=== PATIENT | female | born 1950 | race American Indian/Alaskan Native ===

== ENCOUNTER 2016-06-26 10:13 | Outpatient (CLI) | payer MEDICAID ==
[2016-06-26 10:44] LABS: Hematocrit 44.6 % (30.3-42.9); Hemoglobin 14.7 gm/dl (10.1-14.3); Mean Corpuscular HGB Conc 33 % (30-34); Mean Corpuscular Hemoglobin 30 pg (28-32); Mean Corpuscular Volume 90 fl (79-97); Red Blood Count 4.97 M/mm3 (3.65-5.03); Red Cell Distribution Width 13.8 % (13.2-15.2); White Blood Count 4.6 K/mm3 (4.5-11.0)
[2016-06-26 10:47] LABS: Platelet Count 188 K/mm3 (140-440)
[2016-06-26 10:54] LABS: INR 0.93 (0.87-1.13)
[2016-06-26 10:55] LABS: Partial Thromboplastin Time 29.4 Sec. (24.2-36.6)
[2016-06-26 11:07] LABS: Alanine Aminotransferase 18 units/L (7-56); Albumin/Globulin Ratio 1.2 %; Alkaline Phosphatase 69 units/L (35-129); Anion Gap 18 mmol/L; Bilirubin,Total 0.9 mg/dL (0.1-1.2); Blood Urea Nitrogen 18 mg/dL (7-17); Calcium 9.5 mg/dL (8.4-10.2); Carbon Dioxide 28 mmol/L (22-30); Chloride 98.4 mmol/L (98-107); Cholesterol 185 mg/dL (50-199); Glucose 105 mg/dL (65-100); HDL Cholesterol 52 mg/dL (40-59); LDL Cholesterol,Direct 112 mg/dL (50-130); Potassium 3.9 mmol/L (3.6-5.0); Sodium 140 mmol/L (137-145); Total Protein 7.3 g/dL (6.3-8.2); Triglycerides 109 mg/dL (2-149)
--- NOTE | 2016-06-26 11:13 | XRay Report ---
CHEST 2 VIEWS INDICATION: Bronchial asthma. COMPARISON: None similar. FINDINGS: PA and lateral chest radiographs demonstrate patient tilting, clear lungs and top normal heart size. No pleural effusions or CHF. Demineralized bones with multilevel spinal spondylosis. CONCLUSION: No significant acute chest process, as described. Thank you for the opportunity to participate in this patient's care.
== END 2016-06-26 10:14 | disposition home or self-care (01) ==
LOC: XRAY 10:13
PROVIDERS: ATTEND Internal Medicine
DX: J45.998 Other asthma (principal); M47.899 Other spondylosis, site unspecified
CPT/HCPCS: 36415; 71020; 80053; 80061; 82785; 84439; 84443; 85027; 85610; 85730

== ENCOUNTER 2016-07-06 23:58 | Emergency (ER) | payer MEDICAID ==
[2016-07-07 01:40] LABS: Basophils % (Auto) 0.8 % (0.0-1.8); Eosinophils % (Auto) 1.8 % (0.0-4.3); Hematocrit 43.3 % (30.3-42.9); Hemoglobin 14.3 gm/dl (10.1-14.3); Mean Corpuscular HGB Conc 33 % (30-34); Mean Corpuscular Hemoglobin 30 pg (28-32); Mean Corpuscular Volume 91 fl (79-97); Platelet Count 159 K/mm3 (140-440); Red Blood Count 4.77 M/mm3 (3.65-5.03); Red Cell Distribution Width 14.1 % (13.2-15.2); White Blood Count 9.2 K/mm3 (4.5-11.0)
[2016-07-07 02:01] LABS: Anion Gap 18 mmol/L; BUN/Creatinine Ratio 11.11; Blood Urea Nitrogen 10 mg/dL (7-17); Calcium 9.6 mg/dL (8.4-10.2); Carbon Dioxide 27 mmol/L (22-30); Chloride 97.2 mmol/L (98-107); Glucose 148 mg/dL (65-100); Potassium 3.6 mmol/L (3.6-5.0); Sodium 139 mmol/L (137-145)
--- NOTE | 2016-07-07 03:30 | Cat Scan Report ---
FINAL REPORT EXAM: CT HEAD/BRAIN WO CON HISTORY: fall down 13 stairs with LOC TECHNIQUE: CT scan of the brain without IV contrast. PRIORS: None FINDINGS: Patchy areas of low density in the periventricular and subcortical white matter are nonspecific, but may relate to chronic small vessel ischemic change. Brain volume is normal for age. No hemorrhage, mass, mass effect, or midline shift. Normal basal cisterns. No pathologic extra-axial fluid collection. No evidence of acute infarct. Left parietal scalp hematoma. No skull fracture. IMPRESSION: 1. No acute intracranial finding. Suspect chronic ischemic changes. Left parietal scalp hematoma.
--- NOTE | 2016-07-07 03:34 | Cat Scan Report ---
FINAL REPORT EXAM: CT CERVICAL SPINE WO CON HISTORY: fall down 13 stairs with LOC TECHNIQUE: CT scan of the cervical spine without IV contrast. Multiplanar reformations. PRIORS: None FINDINGS: No significant alignment abnormality. No fracture seen. Normal soft tissues. Moderate multilevel degenerative changes. IMPRESSION: 1. No acute finding.
[2016-07-07] MEDS ORDERED: NORCO 5/325 PO ONE (07:43)
--- NOTE | 2016-07-07 07:47 | Emergency Department Report ---
HPI - General Chief Complaint: Fall Time Seen by Provider: 07/07/16 07:38 - HPI HPI: This is a 65-year-old Afro-[place] female presents to the emergency department from home after a fall down some stairs last night around 7 PM. Patient says that she "saw black" and then spun around and went down about 8 stairs on her back. She does not necessarily remember going down the stairs but does not think that she was unconscious by the time she was done following. She complains of some pain to the neck, worst on the sides, a bump to the back of her head and some pain to the left hip and knee. Patient has a past medical history of asthma, CHF, hypertension, COPD on 2 L oxygen. Her primary care doctor is a Dr. Lott. She did not take anything for symptoms prior to presentation that was driven in to be seen by her sister. ED Past Medical Hx - Past Medical History Previous Medical History?: Yes Hx Hypertension: Yes Hx Congestive Heart Failure: Yes Hx Asthma: Yes - Surgical History Past Surgical History?: Yes Additional Surgical History: foot, back , and hyster - Medications Home Medications: Home Medications Medication Instructions Recorded Confirmed Last Taken Type HYDROcodone/APAP 5-325 [Rena Lara 1 each PO Q6HR PRN #8 tablet 07/07/16 Unknown Rx 5/325] ED Review of Systems ROS: Stated complaint: FALL DOWN STAIRS Other details as noted in HPI Comment: All other systems reviewed and negative Constitutional: denies: chills, fever Eyes: denies: eye pain, eye discharge, vision change ENT: denies: ear pain, throat pain Respiratory: denies: cough, shortness of breath, wheezing Cardiovascular: syncope (vs near syncope). denies: chest pain, palpitations Gastrointestinal: denies: abdominal pain, nausea, diarrhea Genitourinary: denies: urgency, dysuria, discharge Musculoskeletal: arthralgia, myalgia. denies: back pain Skin: denies: rash, lesions Neurological: denies: numbness, paresthesias Physical Exam - Physical Exam Vital Signs: Vital Signs 07/07/16 07/07/16 00:10 06:17 Temperature 99 F 98.9 F Pulse Rate 88 76 Respiratory 20 18 Rate Blood Pressure 163/100 159/111 O2 Sat by Pulse 97 99 Oximetry Physical Exam: GENERAL: The patient is well-developed well-nourished. HEENT: Normocephalic. Atraumatic. Extraocular motions are intact. Patient has moist mucous membranes. Pupils equal reactive to light bilaterally. No septal hematoma. NECK: Supple. Trachea is midline. C-collar in place but once opened she has some mild tenderness to palpation both midline and paraspinal but no step-off or deformity. CHEST/LUNGS: Clear to auscultation. There is no respiratory distress noted. HEART/CARDIOVASCULAR: Regular. There is no tachycardia. There is no gallop rub or murmur. ABDOMEN: Abdomen is soft, nontender. Patient has normal bowel sounds. There is no abdominal distention. SKIN: There is no rash. There is no edema. There is no diaphoresis. NEURO: The patient is awake, alert, and oriented. The patient is cooperative. The patient has no focal neurologic deficits. The patient has normal speech. BACK: No midline thoracic or lumbar tenderness to palpation or deformity. MUSCULOSKELETAL: Patient has some tenderness to palpation to the left hip and the left knee. There is no laxity with valgus or varus stress of the affected left knee. Negative anterior and posterior drawer test. There is no limitation range of motion. Neurovascular intact. ED Course Vital Signs 07/07/16 07/07/16 00:10 06:17 Temperature 99 F 98.9 F Pulse Rate 88 76 Respiratory 20 18 Rate Blood Pressure 163/100 159/111 O2 Sat by Pulse 97 99 Oximetry ED Medical Decision Making - Lab Data Result diagrams: 07/07/16 01:18 07/07/16 01:18 - EKG Data -: EKG Interpreted by Me EKG shows normal: sinus rhythm, axis, intervals (prolonged VT interval indicating first degree AV block), QRS complexes (Q waves to the inferior leads and anterior leads) Rate: normal - EKG Data When compared to previous EKG there are: changes noted (Q waves to the inferior and anterior leads) Interpretation: other (first-degree AV block, sinus rhythm, Q waves to the inferior and anterior leads, no ST elevation FL) - Radiology Data Radiology results: report reviewed, image reviewed interpreted by me: Chest x-ray did not show any acute process. Heart is normal shape and size. No effusions. No pneumothorax. No signs of pneumonia seen. X-ray left knee does not show any fracture, dislocation or any acute process. X-ray of the pelvis does not show any fracture, dislocation or any acute process. CT of the head does not show any acute process including no hemorrhage, mass, shift, diffuse edema or skull fracture. CT of the cervical spine does not show any fracture, subluxation, dislocation or any acute process. - Medical Decision Making 65-year-old female presents after a near syncope or syncopal episode that led to her falling down some stairs. This happened last night and the patient presents this morning. Patient has been awake and alert without any focal, motor or sensory deficits and has cranial nerves intact. She had a CT of the head and cervical spine that did not show any fracture, dislocation, bleed, shift or any acute process. X-rays of the chest, pelvis and left knee were also done that did not show any fracture, dislocation or any acute process. Patient labs have been unremarkable for any source of infection or etiology of her possible syncope. EKG did not show any signs of ST elevation FL, or dysrhythmia. Patient was seen ambulatory in the emergency department after all of her imaging was completed and she appears stable doing so. Patient appears safe for discharge home. She will follow-up with her primary care doctor in the next few days and will return to the ER with any worsening of her symptoms, recurrence of any syncope, or any acute distress. - Differential Diagnosis dysrhythmia, skull fracture, brain bleed, dislocation, contusion Critical Care Time: No Critical care attestation.: If time is entered above; I have spent that time in minutes in the direct care of this critically ill patient, excluding procedure time. ED Disposition Clinical Impression: Neck pain Syncope Qualifiers: Syncope type: unspecified Qualified Code(s): R55 - Syncope and collapse Hypertension Qualifiers: Hypertension type: essential hypertension Qualified Code(s): I10 - Essential ( primary) hypertension Hip pain Qualifiers: Laterality: left Qualified Code(s): M25.552 - Pain in left hip Leg pain Qualifiers: Laterality: left Qualified Code(s): M79.605 - Pain in left leg Disposition: DISCHARGED TO HOME OR SELFCARE Is pt being admited?: No Does the pt Need Aspirin: No Condition: Stable Instructions: Syncope (ED), Knee Pain (ED), Hypertension (ED), Arthralgia (ED) Additional Instructions: Please follow-up with your primary care doctor in the next few days without fail. Return to the emergency department with any further episodes of passing out, chest pain or shortness of breath, any worsening of your symptoms, or any acute distress. You've also been given a referral for a local orthopedist, Dr. Bhagat, to follow up regarding your hip and knee pain. You've been prescribed a medication that is sedating. Therefore this medication cannot be mixed with alcohol, or taken prior to driving, working, or being responsible for children. This pain medication will make you fatigued and may increase your risk of falling or passing out. It should only be taken when you are at home, without any responsibility, and preferably with someone monitoring you. Please try to stay away from foods that are high in salt and caffeinated products to help with your elevated blood pressure. Take your blood pressure medication as previously prescribed. Keep a blood pressure log. Prescriptions: HYDROcodone/APAP 5-325 [Rena Lara 5/325] 1 each PO Q6HR PRN #8 tablet PRN Reason: Pain Referrals: ARLETH LOTT [Other] - 3-5 Days Time of Disposition: 08:57
--- NOTE | 2016-07-07 08:08 | XRay Report ---
ROUTINE CHEST, TWO VIEWS: HISTORY: chest pain. The trachea, heart, mediastinal contour, lung sims and bony thorax are unremarkable. IMPRESSION: Unremarkable chest x-ray.
--- NOTE | 2016-07-07 08:08 | XRay Report ---
AP PELVIS: History: Pelvic pain after fall. AP view of the pelvis shows normal pelvic contour and soft tissues. The hips are symmetric and within normal limits as are the sacroiliac joints. IMPRESSION: Normal pelvis.
--- NOTE | 2016-07-07 08:59 | XRay Report ---
LEFT KNEE, 3 VIEWS: HISTORY: Left knee pain after fall. FINDINGS: There are moderate osteoarthritic changes in the medial compartment and patellofemoral space. Moderate tibial spine spurring. There is no evidence for fracture, large osteochondral defect or bone lesion. Small joint effusion is suspected. IMPRESSION: Osteoarthritic changes. Small joint effusion. No acute injury is appreciated on x-ray.
[2016-07-07 09:08] VITALS: BP 154/88
== END 2016-07-07 09:08 | disposition home or self-care (01) ==
LOC: ED 23:58
DX: M54.2 Cervicalgia (principal); R55 Syncope and collapse; M25.552 Pain in left hip; M79.605 Pain in left leg; I50.9 Heart failure, unspecified; J45.909 Unspecified asthma, uncomplicated; I10 Essential (primary) hypertension
CPT/HCPCS: 36415; 70450; 71020; 72125; 72170; 80048; 84484; 85025; 93005; 93010

== ENCOUNTER 2016-11-26 03:11 | Emergency (ER) | payer MEDICARE, MEDICAID ==
[~2016-11-26 03:11] MED LIST: ADRENALIN ONE
--- NOTE | 2016-11-26 04:11 | Emergency Department Report ---
ED CPR HPI - General Chief Complaint: Cardiac Arrest/CPR Stated Complaint: CARDIAC ARREST Time Seen by Provider: 11/26/16 03:11 Source: EMS Mode of arrival: Stretcher Limitations: Altered Mental Status, Physical Limitation - History of Present Illness Initial Comments: 66 year old female the past medical history COPD, CHF, and hypertension presents to the hospital in cardiopulmonary arrest. Last known well time was 10 PM. Patient was found unresponsive by her sister (who is a respiratory therapist) at 2:30 AM. EMS was at the scene at 2:40 AM and found patient in V. fib. Patient was shocked with 200 J and converted to PEA. Patient then received intubation with ET tube 7.0, IO to the left leg, Narcan, 1 amp of bicarbonate, and 4 rounds of epi. Patient was bradycardic with a pulse on the ramp and received 300 mg of amiodarone. Blood glucose 200 prior to arrival. Once patient was placed on ED stretcher rhythm was reanalyzed. Patient presented to the ED in asystole and pulseless. - Related Data Previous Rx's Medication Instructions Recorded Last Taken Type HYDROcodone/APAP 5-325 [Clio 1 each PO Q6HR PRN #8 tablet 07/07/16 Unknown Rx 5/325] Allergies Allergy/AdvReac Type Severity Reaction Status Date / Time No Known Allergies Allergy Verified 07/07/16 00:18 ED Review of Systems ROS: Stated complaint: CARDIAC ARREST Other details as noted in HPI Comment: Unobtainable due to pts medical conditions ED Past Medical Hx - Past Medical History Hx Hypertension: Yes Hx Congestive Heart Failure: Yes Hx Asthma: Yes - Surgical History Additional Surgical History: foot, back , and hyster - Social History Smoking Status: Unknown if ever smoked - Medications Home Medications: Home Medications Medication Instructions Recorded Confirmed Last Taken Type HYDROcodone/APAP 5-325 [Clio 1 each PO Q6HR PRN #8 tablet 07/07/16 Unknown Rx 5/325] ED Physical Exam - General Limitations: Altered Mental Status, Physical Limitation - Other Other exam information: General: Unresponsive Head exam: Atraumatic Eyes exam: Pupils fixed ENT: Orally intubated 7.0 ET tube Neck exam: Normal inspection Respiratory exam: No spontaneous respirations clear to auscultation bilaterally Cardiovascular: Pulseless no audible heart beat Abdomen: Soft, nondistended, no breath sounds over the epigastrium Extremity: left leg IO Back: Normal Inspection, full range of motion, no tenderness Neurologic: GCS = 3 Skin: Warm, dry, intact ED Course - Reevaluation(s) Reevaluation #1: 11/26/16 In ed cpr was continued. Asystole on monitor. pt given additional epinephrine without rhythm change. Time of 3:12 a.m. ED Medical Decision Making - Medical Decision Making Despite resuscitation efforts patient remained in asystole. Sister was in the ED and informed of patient's . - Differential Diagnosis PE, AR, arrhythmia, CVA Critical Care Time: No Critical care attestation.: If time is entered above; I have spent that time in minutes in the direct care of this critically ill patient, excluding procedure time. ED Disposition Clinical Impression: Cardiopulmonary arrest Disposition: DC-20 Is pt being admited?: No Time of Disposition: 04:14
== END 2016-11-26 05:15 ==
LOC: ED 03:11
DX: I46.9 Cardiac arrest, cause unspecified (principal); I11.0 Hypertensive heart disease with heart failure; I50.9 Heart failure, unspecified; J45.909 Unspecified asthma, uncomplicated
CPT/HCPCS: 99285; J0171